=== PATIENT | female | born 1955 | race Caucasian/White ===

== ENCOUNTER 2025-03-30 09:11 | Observation (INO) | payer MEDICARE ==
[2025-03-30 10:44] LABS: #Basophils 0.05 10x3/uL (0.0-0.2); #Eosinophils 0.14 10x3/uL (0.0-0.7); #Monocytes 0.42 10x3/uL (0.11-0.59); #Neutrophils 4.44 10x3/uL (1.40-6.50); %Basophils 0.8 % (0.0-1.0); %Eosinophils 2.1 % (0.0-10.0); %Lymphocytes 23.1 % (21.0-51.0); %Monocytes 6.4 % (0.0-10.0); %Neutrophils 67.3 % (42.0-75.0); Hematocrit 42.7 % (36.0-47.0); Hemoglobin 14.1 g/dL (12.0-16.0); Mean Corpuscular Hemoglobin 29.8 pg (27.0-31.0); Mean Corpuscular Volume 90.3 fL (78.0-98.0); Platelet Count 338 10x3/uL (130-400); Red Blood Cell (RBC) Count 4.73 mill/uL (4.20-5.40); White Blood Cell (WBC) Count 6.59 10x3/uL (4.8-10.8)
[2025-03-30 11:15] LABS: Magnesium 2.3 mg/dL (1.6-2.6)
[2025-03-30 11:22] LABS: ALT (SGPT) 15 U/L (Less than 34); AST (SGOT) 55 U/L (11-34); Albumin 4.0 g/dL (3.1-4.5); Alkaline Phosphatase 138 U/L (40-110); Anion Gap 16 mmol/L (10-20); BUN (Urea Nitrogen) 14 mg/dL (9.8-20.1); Bilirubin, Total 0.8 mg/dL (0.3-1.2); Calc. Creatinine Clearance 0 mL/min (70-130); Calcium 9.6 mg/dL (7.8-10.44); Carbon Dioxide 23 mmol/L (23-31); Chloride 104 mmol/L (98-107); Globulin 3.8 g/dL (2.4-3.5); Glucose 99 mg/dL (80-115); Potassium 5.0 mmol/L (3.5-5.1); Sodium 138 mmol/L (136-145)
[2025-03-30] MEDS ORDERED: Enoxaparin 80 MG (0.8 mL) SYRINGE SC SCH (21:00)
[2025-03-31 01:07] VITALS: BMI 27.5
[2025-03-31 04:31] LABS: Cardiac Risk 3.7 (Less than 4.5); Cholesterol 224.0 mg/dl (< 200 Desired); HDL Cholesterol 61.0 mg/dL (>60 Neg Risk); LDL Cholesterol, Calculated 143.0 mg/dL; Triglycerides 100.0 mg/dL (Less than 150)
[2025-03-31 04:53] LABS: Free T4 (Free Thyroxine) 1.13 ng/dL (0.70-1.48); Thyroid Stimulating Hormone 1.5905 uIU/mL (0.35-4.94)
[2025-03-31] MEDS: Aspirin Chewable 81 MG TAB PO SCH (08:28)
[2025-03-31] MEDS: Acetaminophen 325 MG TAB PO PRN (08:28)
[2025-03-31] MEDS: Famotidine 20 MG TAB PO SCH (13:59)
[2025-03-31] MEDS: Enoxaparin 40 MG (0.4 mL) SYRINGE SC SCH (14:01)
[2025-03-31 16:27] VITALS: BP 117/76; TEMP 97.6
[2025-04-01] MEDS ORDERED: PNEUMOC 20-VAL CONJ-DIP CRM/PF 0.5 ML SYRINGE IM ONE (09:00)
== END 2025-03-31 17:48 | disposition home or self-care (01) ==
LOC: ERS 09:11 → ERHOLD 15:43 → 2SE 23:17
PROVIDERS: ADMIT Internal Medicine; ATTEND Internal Medicine
PROC: B245ZZ4 Ultrasonography of Left Heart, Transesophageal (ICD-10-PCS; principal; 2025-03-30)
DX: R00.2 Palpitations (principal); R07.89 Other chest pain; I34.0 Nonrheumatic mitral (valve) insufficiency; Z88.2 Allergy status to sulfonamides
CPT/HCPCS: 71045; 78452; 80053; 80061; 83735; 84439; 84443; 84484 ×2; 85025; 93005; 93017; 93306; 94760; 99285; A9502; J2785 ×2; 36415; G0378